=== PATIENT | female | born 1965 | race African-American/Black ===

== ENCOUNTER 2020-09-30 23:28 | Emergency (ER) | payer OTHER ==
[2020-09-30 23:46] VITALS: BMI 21.2
[2020-10-01] MEDS ORDERED: MAG HYDROX/AL HYDROX/SIMETH 30 ML UNIT-DOSE CUP PO ONE (00:28)
[2020-10-01] MEDS ORDERED: PANTOPRAZOLE SODIUM 40 MG VIAL IVPUSH ONE (00:28)
[2020-10-01] MEDS ORDERED: PANTOPRAZOLE SODIUM 40 MG/100 ML BAG IVPB ONE (00:44)
[2020-10-01 00:49] LABS: BASO % 0.4 % (0-2.0); EOS % 1.6 % (0-4.5); HEMATOCRIT 37.4 % (32.4-45.2); HEMOGLOBIN 12.4 GM/dL (10.7-15.3); MCH 29.1 pg (25.7-33.7); MCHC 33.1 g/dl (32.0-36.0); MEAN CELL VOLUME 87.8 fl (80-96); MEAN PLT VOLUME 8.9 fl (7.5-11.1); MONO % 6.9 % (3.8-10.2); NEUT % 53.1 % (42.8-82.8); PLATELET COUNT 316 K/MM3 (134-434); RBC 4.26 M/mm3 (3.60-5.2); RDW 14.2 % (11.6-15.6); WHITE BLOOD COUNT 10.2 K/mm3 (4.0-10.0)
[2020-10-01 00:59] LABS: INR 0.99 (0.83-1.09); PROTHROMBIN TIME (PATIENT) 12.2 SEC (9.7-13.0)
[2020-10-01 01:02] LABS: ACTIVATED PTT 29.7 SECONDS (25.2-36.5)
[2020-10-01 01:15] LABS: CHLORIDE 103 mmol/L (98-107); SODIUM 139 mmol/L (136-145)
[2020-10-01 01:18] LABS: ALBUMIN 3.5 g/dl (3.4-5.0); ANION GAP 8 MMOL/L (8-16); BLOOD UREA NITROGEN 15.1 mg/dL (7-18); CALCIUM 8.6 mg/dL (8.5-10.1); CO2 27 mmol/L (21-32); GLUCOSE,RANDOM 120 mg/dL (74-106); LIPASE 76 U/L (73-393)
[2020-10-01 01:21] LABS: CREATININE 0.6 mg/dL (0.55-1.3); SGOT/AST 17 U/L (15-37); SGPT/ALT 19 U/L (13-61)
[2020-10-01 01:23] LABS: BILIRUBIN,TOTAL 0.4 mg/dL (0.2-1); TOT PROT 7.2 g/dl (6.4-8.2)
[2020-10-01 01:24] LABS: ALK PHOS 73 U/L (45-117)
[2020-10-01] MEDS ORDERED: OCTREOTIDE ACETATE 50 MCG/1 ML - 1 ML VIAL IVPUSH ONE (02:02)
[2020-10-01] MEDS ORDERED: LACTATED RINGERS SOLUTION 1000 ML INFUS.BAG IV ONE (02:05)
[2020-10-01] MEDS ORDERED: OCTREOTIDE ACETATE 200 MCG, OCTREOTIDE ACETATE 1,000 MCG in DEXTROSE 5%-WATER - 496 ML IVPB SCH (02:15)
[2020-10-01] MEDS ORDERED: OCTREOTIDE ACETATE 500 MCG/1 ML - 1 ML VIAL ONE (02:43)
[2020-10-01] MEDS ORDERED: OCTREOTIDE ACETATE 100 MCG/1 ML ONE (02:44)
[2020-10-01 08:46] VITALS: BP 153/58; PULSE 67; TEMP 98.1
== END 2020-10-01 09:45 | disposition short-term general hospital (02) ==
LOC: JER 23:28 → UNDOADMIN 10-01 02:02 → JERBED 10-01 02:02 → JER 10-01 09:45
DX: K92.2 Gastrointestinal hemorrhage, unspecified (principal); R04.1 Hemorrhage from throat
CPT/HCPCS: 36415; 71045-TC-FY; 80053; 82272; 83690; 84484; 85025; 85610; 85730; 86850; 86900; 86901; 93005; 93010; 99285-25